=== PATIENT | female | born 1995 | race Two or more races ===

== ENCOUNTER 2016-09-06 16:28 | Outpatient (CLI) | payer OTHER, MEDICAID ==
[2016-09-06 17:30] VITALS: BMI 33.6
== END 2016-09-06 17:55 | disposition home or self-care (01) ==
LOC: FBCOUT 16:28 → FBC 16:31 → FBCOUT 17:55
PROVIDERS: ATTEND Family Medicine
DX: O26.899 Other specified pregnancy related conditions, unspecified trimester (principal); Z3A.00 Weeks of gestation of pregnancy not specified
CPT/HCPCS: 59025; 81002; G0463

== ENCOUNTER 2016-09-19 17:28 | Outpatient (CLI) | payer OTHER, MEDICAID ==
[2016-09-19 17:57] VITALS: BMI 32.9
== END 2016-09-19 20:40 | disposition home or self-care (01) ==
LOC: FBCOUT 17:28 → FBC 17:30 → FBCOUT 20:40
PROVIDERS: ATTEND Family Medicine
DX: O26.893 Other specified pregnancy related conditions, third trimester (principal); Z3A.38 38 weeks gestation of pregnancy
CPT/HCPCS: 59025; 81002; G0463

== ENCOUNTER 2016-09-20 14:08 | Inpatient (IN) | payer OTHER, MEDICAID ==
[2016-09-20 15:27] VITALS: BMI 32.9
[2016-09-20] MEDS ORDERED: LIDOCAINE Viscous 2% 15 ML UDCUP ONE (15:29)
[2016-09-20] MEDS ORDERED: LACTATED RINGERS 1,000 ML ONE (15:29)
[2016-09-20] MEDS ORDERED: PUMP TUBING ONE (15:29)
[2016-09-20] MEDS ORDERED: OXYTOCIN IN LR 500 ML IV ONE ×2 (15:29→15:48)
[2016-09-20] MEDS ORDERED: MINERAL OIL 25 ML BOT ONE (15:29)
[2016-09-20] MEDS ORDERED: IV START KIT ONE (15:29)
[2016-09-20] MEDS ORDERED: LIDOCAINE 1% (PRES FREE) 30 ML VIAL ONE (15:29)
[2016-09-20] MEDS ORDERED: OXYTOCIN 10 UNITS/ML VIAL ONE (15:29)
[2016-09-20] MEDS: LACTATED RINGERS 1,000 ML IV SCH ×2 (15:40→23:38)
[2016-09-20] MEDS: OXYTOCIN IN LR 500 ML IV PRN ×4 (15:52→23:52)
[2016-09-20 16:02] LABS: HEMATOCRIT 33.2 % (37.0-47.0); HEMOGLOBIN 11.6 gm/l (12.0-16.0); MEAN CORPUSCULAR HEMOGLOBIN 32.1 pg (27.0-31.0); MEAN CORPUSCULAR HGB CONC 34.9 g/dl (33.0-37.0); RED CELL DISTRIBUTION WIDTH 13.2 % (11.5-14.5)
--- NOTE | 2016-09-20 21:52 | PCMAN ---
OB Admission Note - History : 2 Term: 1 : 0 Abortions (S&E): 0 Livin Gestational Age (weeks): 38 Days (#/7): 6 Admit Cervical Dilation:: 5 Admit Cervical Effacement (%):: 90 Admit Station:: -2 Admit Presentaton:: vtx Membrane Status: Ruptured Rupture (Date): 09/20/16 Rupture (Time): 07:00 Membranes Comment:: clear Contractions: Yes Contraction Frequency:: 4-6 Heart Rate:: 130 (mod bela/+accels/no decels) Status:: Cat 1 EFW:: 7# Summary of Course:: Uncomplicated course. hx of IUGR Dating Hx: LMP 12/14/15, JOSUE 09/19/16 u/s 02/26/16 9w2d, JOSUE 09/28/16 - Labs Blood Type: O (+) positive Rubella Status: Immune GBS Status: Negative Abnormal Labs: None - Review of Systems Good FM, LOF starting at 7a Occ ctx No VB - Physical Exam General: Afebrile Psych/Mental Status: Mood/Affect Appropriate, Judgment/Insight Intact Neurological: Grossly Intact, Alert HEENT: Atraumatic, EOMI Lungs: Normal Air Movement Cardiovascular: Regular Rate and Rhythm, Normal S1, Normal S2, No Murmur Abdomen: Normal Bowel Sounds - Problems (1) PROM (premature rupture of membranes) Status: Acute Code: O42.90 Assessment/Plan: 21 yo @ 38w6d by R=9, PROM. 1. Labor: PROM at 7am today with irregular ctx. Pt was admitted, started on pitocin for augmentation. Continue pitocin per protocol. 2. FWB Cat 1 3. Pain: would prefer natural, not opposed to epidural 4. GBS neg
[2016-09-21] MEDS: OXYTOCIN IN LR 500 ML IV PRN ×2 (00:33→04:04)
[2016-09-21] MEDS ORDERED: FENTANYL/ROPIVACAINE EPIDURAL 250 ML EP ONE (01:47)
[2016-09-21] MEDS ORDERED: EPIDURAL PUMP SET ONE (01:47)
--- NOTE | 2016-09-21 01:55 | PDOC36 ---
Provider Note Subject: S: Pt feeling more uncomfortable, requests epidural. O: VSS SVE: 670/-2, AROM of forebag with clear fluid, IUPC placed without difficulty Ferguson: q2m FHT: A/P: 21 yo @ 39w0d, labor. 1. Labor: pt with minimal cervical change on 14U of pit. AROM of forebag and IUPC placed to better monitor ctx. Since IUPC placed, pt has been carmen q2min, and early decels noted with ctx. 2. FWB: Cat 2 for early decels, but good variability 3. Pain: desires epidural, will hydrate and notify [employer] 4. GBS neg
[2016-09-21] MEDS: LACTATED RINGERS 1,000 ML IV SCH ×3 (02:16→03:33)
[2016-09-21] MEDS ORDERED: FENTANYL 100 MCG/2 ML VIAL ONE ×2 (02:23→07:03)
[2016-09-21] MEDS ORDERED: LIDOCAINE 2% (PRES FREE) 5 ML VIAL ONE (02:25)
[2016-09-21] MEDS ORDERED: EPIDURAL PROCEDURE TRAY ONE (02:25)
--- NOTE | 2016-09-21 04:48 | PCMDEL ---
Delivery Note - Labor 1st stage (hr/min):: 7h56m 2nd stage (hr/min):: 1h 3rd stage (hr/min):: 5m Total (hr/min):: 9h1m Pushed (hr/min):: 6m - Delivery Delivery (Date): 09/21/16 Delivery (Time): 04:10 Gender: Male Presentation: Cephalic Position: OA Umbilical Cord: 3 Vessel, Nuchal Cord Delayed Cord Clamping:: 2-3 min 1 Minute Total: 9 5 Minute Total: 9 Placenta:: intact EBL:: 400cc Perineum:: 2nd degree perineal lac repaired, L labial lac repaired Suture:: 3-0 Vicryl x 2 Anesthesia/Meds:: epidural Length ROM:: 21h10m Comments:: Uncomplicated over intact perineum. Infant was easily delivered through a loose nuchal cord. Cord clamping delayed by 2min and cut by FOB. Active management of 3rd stage with pitocin. A R labial lac and 2nd degree midline perineal lac were repaired in standard fashion. Fundus firm, below umbilicus with draining of copious urine with red sarthak catheter. Hemostasis confirmed. EBL 400cc.
[2016-09-21] MEDS ORDERED: HYDROCODONE/ACETAMINOPHEN 5/325MG TABLET PO PRN (04:51)
[2016-09-21] MEDS ORDERED: LANOLIN 50 APPLIC/7G TUBE TP PRN (04:51)
[2016-09-21] MEDS ORDERED: OXYCODONE HCL 5 MG TABLET PO PRN (04:51)
[2016-09-21] MEDS ORDERED: DOCUSATE SODIUM 100 MG CAPSULE PO PRN (04:51)
[2016-09-21] MEDS ORDERED: BENZOCAINE/MENTHOL 60 APPLIC/BOT TP PRN (04:51)
[2016-09-21] MEDS ORDERED: LACTATED RINGERS 1,000 ML ONE ×2 (06:19→07:13)
[2016-09-21] MEDS ORDERED: PUMP TUBING ONE (06:56)
[2016-09-21] MEDS ORDERED: OXYTOCIN IN LR 500 ML IV ONE ×2 (06:56→07:45)
[2016-09-21] MEDS ORDERED: MISOPROSTOL 200 MCG TABLET PR ONE (07:38)
[2016-09-21] MEDS ORDERED: METHYLERGONOVINE MALEATE 0.2 MG/ML 1ML AMP IM PRN (07:40)
[2016-09-21] MEDS: IBUPROFEN 600 MG TABLET PO PRN ×3 (07:57→21:05)
[2016-09-21 08:26] LABS: HEMATOCRIT 26.5 % (37.0-47.0); HEMOGLOBIN 8.5 gm/l (12.0-16.0); MEAN CELL VOLUME 97.1 fl (81.0-99.0); MEAN CORPUSCULAR HEMOGLOBIN 31.1 pg (27.0-31.0); MEAN CORPUSCULAR HGB CONC 32.1 g/dl (33.0-37.0); RED CELL DISTRIBUTION WIDTH 13.3 % (11.5-14.5)
[2016-09-21] MEDS ORDERED: IRON SUCROSE COMPLEX 200 MG in SODIUM CHLORIDE 0.9% 100 ML IV ONE (08:34)
--- NOTE | 2016-09-21 08:34 | PDOC44 ---
- Subjective Day: 0 had episode of atony at 6:30, feeling dizzy Reports Flatus, Reports Pain Tolerable, Reports , Reports Lochia Heavy, Reports Tolerating Regular Diet - Objective Temp Pulse Resp BP Pulse Ox 98.1 F 100 18 118/58 09/21/16 06:25 09/21/16 07:59 09/21/16 07:59 09/21/16 07:59 Lab Results 09/21/16 09/20/16 07:10 15:40 WBC 14.5 H 10.4 RBC 2.73 L 3.61 L Hgb 8.5 L D 11.6 L Hct 26.5 L 33.2 L Plt Count 144 176 09/21/16 09/20/16 07:10 15:40 MCH 31.1 H 32.1 H MCHC 32.1 L Current Medications Generic Name Dose Route Start Last Admin Trade Name Freq PRN Reason Stop Dose Admin Acetaminophen/Hydrocodone Bitart 1 - 2 tab 09/21/16 04:51 Proctor 5/325 PO Q4H PRN Pain (Moderate) Benzocaine/Menthol 1 applic 09/21/16 04:51 Dermoplast TP PRN PRN Patient Comfort Docusate Sodium 100 mg 09/21/16 04:51 Colace PO DAILY PRN Comfort Emollient Ointment 1 applic 09/21/16 04:51 [id number] TP PRN PRN sore nipples Ibuprofen 600 mg 09/21/16 04:51 09/21/16 07:57 Motrin PO 600 mg Q6H PRN Administration Pain (Mild) Methylergonovine Maleate 0.2 mg 09/21/16 07:40 09/21/16 07:12 Methergine IM 0.2 mg Q3H PRN Administration Bleeding Oxycodone HCl 5 - 10 mg 09/21/16 04:51 Roxicodone PO Q3H PRN Pain (Severe) Sodium Chloride 10 ml 09/21/16 04:51 Normal Saline 10ml Flush IV PRN PRN IV Flush Sodium Chloride 10 ml 09/21/16 09:00 Normal Saline 10ml Flush IV Q8HR PARAG - Physical Exam General: Afebrile Neurological: Alert Lungs: Clear to Auscultation Bilaterally Cardiovascular: Normal S1, Normal S2, Other (tachycardic) Fundus: Firm, Firm with Massage, Other (extrected a lot of clots vaginally at 0700) Genitourinary: Normal Female Genitalia Rectal Exam: Deferred Extremities: Other (nt no edema) Skin: Normal Color - Problems:Assessment/Plan (1) (normal spontaneous vaginal delivery) Status: Acute Assessment/Plan: PPD 0. episode of atony, responded well to miso 800 mcg, pitocin and methergine. hgb is 8.5 , stable now. (2) Anemia Qualifiers: Other causes of anemia: acute posthemorrhagic Status: Acute Assessment/Plan: as above given IV iron today, and sent home on iron/colace recheck h/h in am Disposition: Anticipate DC Home Tomorrow
[2016-09-21] MEDS ORDERED: ONDANSETRON 4 MG/2ML 2 ML VIAL IV PRN (08:52)
[2016-09-22] MEDS: IBUPROFEN 600 MG TABLET PO PRN ×3 (03:22→19:32)
[2016-09-22 06:56] LABS: HEMATOCRIT 17.4 % (37.0-47.0); HEMOGLOBIN 5.7 gm/l (12.0-16.0)
--- NOTE | 2016-09-22 09:58 | PDOC44 ---
- Subjective Day: 1 Reports Pain Tolerable, Reports Lochia Light - Objective Temp Pulse Resp BP Pulse Ox 98.2 F 94 18 108/63 09/22/16 07:55 09/22/16 07:55 09/22/16 07:55 09/22/16 07:55 Lab Results 09/22/16 06:10 Hgb 5.7 L* D Hct 17.4 L* Current Medications Generic Name Dose Route Start Last Admin Trade Name Freq PRN Reason Stop Dose Admin Acetaminophen/Hydrocodone Bitart 1 - 2 tab 09/21/16 04:51 Zamora 5/325 PO Q4H PRN Pain (Moderate) Benzocaine/Menthol 1 applic 09/21/16 04:51 Dermoplast TP PRN PRN Patient Comfort Docusate Sodium 100 mg 09/21/16 04:51 Colace PO DAILY PRN Comfort Emollient Ointment 1 applic 09/21/16 04:51 [id number] TP PRN PRN sore nipples Ibuprofen 600 mg 09/21/16 04:51 09/22/16 03:22 Motrin PO 600 mg Q6H PRN Administration Pain (Mild) Methylergonovine Maleate 0.2 mg 09/21/16 07:40 09/21/16 07:12 Methergine IM 0.2 mg Q3H PRN Administration Bleeding Ondansetron HCl 4 mg 09/21/16 08:52 09/21/16 09:10 Zofran IV 4 mg Q4H PRN Administration Nausea/Vomiting Oxycodone HCl 5 - 10 mg 09/21/16 04:51 Roxicodone PO Q3H PRN Pain (Severe) Sodium Chloride 10 ml 09/21/16 04:51 09/22/16 03:22 Normal Saline 10ml Flush IV 10 ml PRN PRN Administration IV Flush Sodium Chloride 10 ml 09/21/16 09:00 09/22/16 03:21 Normal Saline 10ml Flush IV 10 ml Q8HR PARAG Administration - Physical Exam General: Afebrile, No Acute Distress Psych/Mental Status: Mood/Affect Appropriate, Judgment/Insight Intact, Bonding Well Neurological: Grossly Intact, Alert, Oriented x 4 Lungs: Clear to Auscultation Bilaterally Cardiovascular: Regular Rate and Rhythm Fundus: Firm, Below Umbilicus Skin: Other (mild pallor, but not as severe as would be expected with a hgb of 5.7.) - Problems:Assessment/Plan (1) Anemia Qualifiers: Other causes of anemia: acute posthemorrhagic Status: Acute Assessment/Plan: PPD 1. episode of atony, responded well to cytotec, pitocin and methergine. Estimated blood loss was 1400 mL Pt also received 5L of fluid after hypotensive episode from test dose of epidural Hb 11.6 - 8.5 - 5.7 (Received 1 dose of IV iron yesterday morning) Patient was dizzy yesterday, but asymptomatic today. She has been up to bathroom twice this morning. Her only symptoms are fatigue. Vital signs are stable. She is likely heme diluted, she would be more tachycardic and symptomatic with such a low Hgb. Will recheck a hgb this evening and give 2 more doses of IV iron q48 hours apart. Pt does not want transfusion unless absolutely necessary. (2) (normal spontaneous vaginal delivery) Status: Acute Assessment/Plan: Otherwise, doing well Exam is normal Continue to encourage Disposition: Stable
[2016-09-22 18:18] LABS: MEAN CELL VOLUME 95.4 fl (81.0-99.0); MEAN CORPUSCULAR HEMOGLOBIN 32.9 pg (27.0-31.0); MEAN CORPUSCULAR HGB CONC 34.5 g/dl (33.0-37.0)
[2016-09-22 18:28] LABS: HEMATOCRIT 16.5 % (37.0-47.0); HEMOGLOBIN 5.7 gm/l (12.0-16.0)
[2016-09-22] MEDS ORDERED: SODIUM CHLORIDE 0.9% 500 ML IV PRN (19:12)
[2016-09-22] MEDS ORDERED: ACETAMINOPHEN 325 MG TABLET PO ONE (19:17)
[2016-09-22] MEDS ORDERED: DIPHENHYDRAMINE HCL 25 MG CAPSULE PO ONE (19:17)
[2016-09-22] MEDS ORDERED: BLOOD Y PLUMSET W/CASSETTE ONE (19:22)
[2016-09-22] MEDS ORDERED: [UNRECOGNIZED DRUG - SUPPLY] ONE (22:08)
[2016-09-23 06:52] LABS: HEMATOCRIT 21.9 % (37.0-47.0); HEMOGLOBIN 7.4 gm/l (12.0-16.0); MEAN CELL VOLUME 91.6 fl (81.0-99.0); MEAN CORPUSCULAR HGB CONC 33.8 g/dl (33.0-37.0); RED CELL DISTRIBUTION WIDTH 14.6 % (11.5-14.5)
[2016-09-23 08:09] VITALS: BP 107/65
--- NOTE | 2016-09-23 11:00 | PDOC39B ---
Hospital Course: ADMIT DATE: 09/20/16 DISCHARGE DATE: 09/23/16 ADMISSION DIAGNOSES: IUP at 39 weeks PROM presentation PROCEDURES: Augmentation of labor HISTORY OF PRESENT ILLNESS: 21 year old G2 T1 L1 at 39 weeks 0 days presenting with PROM. HOSPITAL COURSE: The patient was augmentated with pitocin. Progressed on normal labor curve to complete and delivered via . Shortly after delivery she developed uterine atony and had 1500mg PP hemorrhage. This was treated with cytotec and methergine. Her HGB dropped to 5.7 at its rajwinder. She was given IV iron supplementation but then transfused 2 units PRBC's. By day of discharge the patient is ambulating, eating, voiding, and passing flatus without difficulty. Pain is controlled and lochia is appropriate. She is having some difficulty with BF. met with the family and they have a plan for SNS. She has no dizziness and steady on feet. D/c with iron supplements. - Physical Exam Vital Signs: Temp Pulse Resp BP Pulse Ox 97.9 F 86 16 107/65 09/23/16 08:05 09/23/16 08:05 09/23/16 08:05 09/23/16 08:05 General: Afebrile, No Acute Distress Neurological: Alert, Oriented x 4 Lungs: Clear to Auscultation Bilaterally Cardiovascular: Regular Rate and Rhythm Fundus: Firm, Midline Extremities: Full ROM, No Edema Skin: Normal Color, Warm, Dry, Intact, No Rash - Discharge Diagnosis (1) Anemia Qualifiers: Other causes of anemia: acute posthemorrhagic Status: AcuteAssessment/ Plan: PPD 2. episode of atony, responded well to cytotec, pitocin and methergine. Estimated blood loss was 1400 mL Pt also received 5L of fluid after hypotensive episode from test dose of epidural Hb 11.6 - 8.5 - 5.7 (Received 1 dose of IV iron yesterday morning) Transfused 2 units PRBC's PPD1 Now asymptomatic and doing well. (2) (normal spontaneous vaginal delivery) Status: AcuteAssessment/Plan: Otherwise, doing well Exam is normal Continue to encourage . has good plan in place with . SNS and pumping. Short f/u tomorrow. - Discharge Plan Condition: Good Disposition: Home Prescriptions: Docusate Sodium [COLACE 100 MG CAPSULE ([facility])] 100 mg PO DAILY PRN #90 capsule PRN Reason: Comfort Ibuprofen [IBUPROFEN 600 MG TABLET ([facility])] 600 mg PO Q6H PRN #60 tablet PRN Reason: Pain (Mild) FERROUS SULFATE (65 Fe) [IRON FERROUS SULFATE 325 MG TABLET ([facility])] 325 mg PO BID #60 tab Lanolin [LANOLIN 7 G TUBE ([facility])] 1 applic TP PRN PRN #10 tube PRN Reason: Sore Nipples Follow-Up: Manisha Wright MD [Primary Care Provider] - In 6 weeks
== END 2016-09-23 12:39 | disposition home or self-care (01) | DRG 774 ==
LOC: FBCOUT 14:08 → FBC 14:12 → FBCOUT 15:01 → FBC 15:01
PROVIDERS: ADMIT Family Medicine; ATTEND Family Medicine
PROC: 10907ZC Drainage of Amniotic Fluid, Therapeutic from Products of Conception, Via Natural or Artificial Opening (ICD-10-PCS; 2016-09-20)
PROC: 10H07YZ Insertion of Other Device into Products of Conception, Via Natural or Artificial Opening (ICD-10-PCS; 2016-09-20)
PROC: 4A1H74Z Monitoring of Products of Conception, Cardiac Electrical Activity, Via Natural or Artificial Opening (ICD-10-PCS; 2016-09-20)
PROC: 10E0XZZ Delivery of Products of Conception, External Approach (ICD-10-PCS; principal; 2016-09-21)
PROC: 0KQM0ZZ Repair Perineum Muscle, Open Approach (ICD-10-PCS; 2016-09-21)
DX: O42.92 Full-term premature rupture of membranes, unspecified as to length of time between rupture and onset of labor (principal); O72.1 Other immediate postpartum hemorrhage; D62 Acute posthemorrhagic anemia; O70.1 Second degree perineal laceration during delivery; O99.02 Anemia complicating childbirth; Z37.0 Single live birth; Z3A.38 38 weeks gestation of pregnancy